=== PATIENT | female | born 1995 | race Caucasian/White ===

== ENCOUNTER 2019-10-19 16:44 | Observation (INO) | END 2019-10-19 20:00 | disposition home or self-care (01) | LOC: 1NENULAB | PROVIDERS: ADMIT Registered Nurse; ATTEND Registered Nurse ==

== ENCOUNTER 2019-10-20 02:35 | Inpatient (IN) ==
[~2019-10-20 02:35] MED LIST: *HR* FentaNYL (PF) 100 MCG/2 ML VIAL IVP PRN; Famotidine 20 MG/2 ML VIAL IVP PRN; Metoclopramide 10 MG/2 ML VIAL IVP PRN; Naloxone 0.4 MG/ML INJ IVP PRN; Ondansetron 4 MG/2 ML VIAL IVP PRN
[2019-10-20] MEDS ORDERED: Oxytocin 20 units/ LR 1000 mL 20 UNIT/1,000 ML BAG IVC SCH ×2 (02:45→23:31)
[2019-10-20 02:58] LABS: Basophils # 0.1 K/mcL (0.0-0.2); Basophils % 0.2 %; Eosinophils % 0.1 %; Hematocrit 37.1 % (35.3-44.9); Hemoglobin 12.5 g/dL (11.5-15.4); Immature Granulocytes % 0.7 % (0-4); Lymphocytes # 1.3 K/mcL (0.6-4.6); Lymphocytes % 6.3 %; Mean Corpuscular HGB Conc 33.7 g/dL (31.6-35.5); Mean Corpuscular Hemoglobin 31.1 pg (28.0-33.3); Mean Corpuscular Volume 92.3 fL (83.0-100.0); Monocytes # 0.6 K/mcL (0.0-1.3); Monocytes % 3.1 %; Neutrophils # 18.8 K/mcL (1.6-8.9); Platelet Count 257 K/mcL (140-400); Red Blood Count 4.02 M/mcL (3.82-4.97); Red Cell Distribution Width 13.2 % (11.5-14.5); Segmented Neutrophils % 89.6 %; White Blood Count 20.9 K/mcL (4.3-11.1)
[2019-10-20] MEDS ORDERED: Epidural Premix (fent/bupiv) 110 ML EP ONE (03:17)
[2019-10-20] MEDS ORDERED: Ropivacaine/PF 0.2% 20 ML VIAL ONE (03:18)
[2019-10-20] MEDS ORDERED: *HR* FentaNYL (PF) 100 MCG/2 ML VIAL ONE (03:18)
[2019-10-20] MEDS ORDERED: EPHEDrine 50 MG/ML VIAL IVP PRN (03:46)
[2019-10-20] MEDS ORDERED: Epidural Premix (fent/bupiv) 110 ML EP SCH (04:00)
[2019-10-20] MEDS ORDERED: miSOPROStoL 25 MCG TABLET PO PRN (13:32)
[2019-10-20] MEDS ORDERED: Measles/Mumps/Rubella Vacc 0.5 ML VIAL SQ PRN (23:31)
[2019-10-20] MEDS ORDERED: Lanolin 7 G OINT...G. TP PRN (23:31)
[2019-10-20] MEDS ORDERED: Benzocaine/Menthol 56 GM AEROSOL SPRAY TP PRN (23:31)
[2019-10-20] MEDS: Acetaminophen 325 MG TABLET PO PRN (23:44)
[2019-10-21] MEDS: Ringers Solution, Lactated 1,000 ML IVC SCH ×2 (06:39→06:40)
[2019-10-21] MEDS: Ibuprofen 600 MG TABLET PO PRN ×3 (06:55→21:47)
[2019-10-21] MEDS: Prenatal Vit/FA 1 EACH TABLET PO SCH (08:19)
[2019-10-21] MEDS: Acetaminophen 325 MG TABLET PO PRN ×2 (12:18→18:03)
[2019-10-22] MEDS: Acetaminophen 325 MG TABLET PO PRN ×2 (03:02→09:19)
[2019-10-22 08:14] VITALS: BP 113/76
[2019-10-22] MEDS: Prenatal Vit/FA 1 EACH TABLET PO SCH (09:15)
== END 2019-10-22 13:57 | disposition home or self-care (01) | DRG 807 ==
LOC: 1NENULAB → 1NENUOBS 10-21 00:54
PROVIDERS: ADMIT Registered Nurse; ATTEND Registered Nurse